=== PATIENT | female | born 1995 | race Caucasian/White ===

== ENCOUNTER 2018-05-28 08:15 | Emergency (ER) | payer BC ==
--- NOTE | 2018-05-28 08:41 | ER Report ---
History and Physical Time Seen By MD: 08:35 Hx. of Stated Complaint: i think i have a uti i have had 3 in the past HPI/ROS CHIEF COMPLAINT: dysuria HISTORY OF PRESENT ILLNESS: pt has had 2 d of dysuria, now with hematuria. Has had dysuria before but not with blood. Occurs at end of every urine stream. Sm all flecks of blood noted. No flank pain, fevers, nausea, vomiting. REVIEW OF SYSTEMS: Respiratory: No cough, no dyspnea. Cardiovascular: No chest pain, no palpitations. Gastrointestinal: No vomiting, no abdominal pain. Musculoskeletal: No back pain. Remainder of the 14 system rev: Yes Allergies: Coded Allergies: Penicillins (Verified Allergy, Unknown, RASH, 05/28/18) amoxicillin (Verified Allergy, Unknown, RASH, 05/28/18) hydrocortisone (Verified Allergy, Unknown, RASH, 05/28/18) Home Meds Active Scripts Phenazopyridine Hcl (PHENAZOPYRIDINE HCL) 100 Mg Tablet, 100 MG PO TID for 3 Days, #9 TAB Prov:ARABELLA ABREU MD 05/28/18 Nitrofurantoin Monohyd/M-Cryst (MACROBID 100 MG CAPSULE) 100 Mg Capsule, 100 MG PO BID for 7 Days, #14 CAPSULE Prov:ARABELLA ABREU MD 05/28/18 Reviewed Nurses Notes: Yes Hx Substance Use Disorder: No Hx Alcohol Use: No Constitutional Vital Sign - Last 24 Hours 05/28/18 05/28/18 08:25 08:56 Temp 97.7 Pulse 68 66 Resp 12 B/P (MAP) 125/76 109/75 (86) Pulse Ox 97 97 O2 Delivery Room Air Physical Exam General Appearance: The patient is alert, has no immediate need for airway protection and no current signs of toxicity. Eyes: Pupils equal and round no injection. Respiratory: Chest is non tender, lungs are clear to auscultation. Cardiac: regular rate and rhythm Gastrointestinal: Abdomen is soft and non tender, no masses, bowel sounds normal. Musculoskeletal: Extremities have full range of motion and are non tender. Skin: No rashes or lesions. DIFFERENTIAL DIAGNOSIS: After history and physical exam differential diagnosis was considered for uti/pyelo/appendicitis/pid/other etiology presenting as dysuria Medical Decision Making Data Points Laboratory Hematology Test 05/28/18 08:25 Urine Color Yellow Urine Clarity Cloudy Urine pH 6.0 pH (4.8-9.5) Urine Specific [place] 1.013 Urine Protein 30 mg/dL (NEGATIVE) Urine Glucose (UA) Negative mg/dL (NEGATIVE) Urine Ketones Negative mg/dL (NEGATIVE) Urine Blood Large (NEGATIVE) Urine Nitrite Negative (NEGATIVE) Urine Bilirubin Negative (NEGATIVE) Urine Urobilinogen Negative mg/dL (0.2-1.9) Urine Leukocyte Esterase Large (NEGATIVE) Urine RBC 710 /HPF (0-2/HPF) Urine WBC 260 /HPF (0-5/HPF) Urine Squamous Epithelial Cells Many /LPF (</=FEW) Urine Bacteria Few /HPF (NONE-FEW) Urine Mucus None /HPF (NONE-FEW) Urine HCG, Qualitative Negative (NEGATIVE) Chemistry Test 05/28/18 08:25 Urine Color Yellow Urine Clarity Cloudy Urine pH 6.0 pH (4.8-9.5) Urine Specific [place] 1.013 Urine Protein 30 mg/dL (NEGATIVE) Urine Glucose (UA) Negative mg/dL (NEGATIVE) Urine Ketones Negative mg/dL (NEGATIVE) Urine Blood Large (NEGATIVE) Urine Nitrite Negative (NEGATIVE) Urine Bilirubin Negative (NEGATIVE) Urine Urobilinogen Negative mg/dL (0.2-1.9) Urine Leukocyte Esterase Large (NEGATIVE) Urine RBC 710 /HPF (0-2/HPF) Urine WBC 260 /HPF (0-5/HPF) Urine Squamous Epithelial Cells Many /LPF (</=FEW) Urine Bacteria Few /HPF (NONE-FEW) Urine Mucus None /HPF (NONE-FEW) Urine HCG, Qualitative Negative (NEGATIVE) Urinalysis Test 05/28/18 08:25 Urine Color Yellow Urine Clarity Cloudy Urine pH 6.0 pH (4.8-9.5) Urine Specific [place] 1.013 Urine Protein 30 mg/dL (NEGATIVE) Urine Glucose (UA) Negative mg/dL (NEGATIVE) Urine Ketones Negative mg/dL (NEGATIVE) Urine Blood Large (NEGATIVE) Urine Nitrite Negative (NEGATIVE) Urine Bilirubin Negative (NEGATIVE) Urine Urobilinogen Negative mg/dL (0.2-1.9) Urine Leukocyte Esterase Large (NEGATIVE) Urine RBC 710 /HPF (0-2/HPF) Urine WBC 260 /HPF (0-5/HPF) Urine Squamous Epithelial Cells Many /LPF (</=FEW) Urine Bacteria Few /HPF (NONE-FEW) Urine Mucus None /HPF (NONE-FEW) Urine HCG, Qualitative Negative (NEGATIVE) ED Course/Re-evaluation ED Course Pt's ua c/w uti with hemorrhagic cystitis; no e/o pyelo D/c with macrobid due to pcn allergy, pyridium, SRp's. Decision to Disposition Date: May 28, 2018 Decision to Disposition Time: 09:10 Depart Departure Latest Vital Signs Vital Signs Date Time Temp Pulse Resp B/P (MAP) Pulse Ox O2 Delivery O2 Flow Rate FiO2 05/28/18 08:56 66 109/75 (86) 97 05/28/18 08:25 97.7 12 Room Air Impression: Primary Impression: UTI (urinary tract infection) Condition: Improved Disposition: HOME OR SELF-CARE New Scripts Phenazopyridine Hcl (PHENAZOPYRIDINE HCL) 100 Mg Tablet 100 MG PO TID for 3 Days, #9 TAB Prov: ARABELLA ABREU MD 05/28/18 Nitrofurantoin Monohyd/M-Cryst (MACROBID 100 MG CAPSULE) 100 Mg Capsule 100 MG PO BID for 7 Days, #14 CAPSULE Prov: ARABELLA ABREU MD 05/28/18 Departure Forms: ER Transition Record, Medications Reconciliation, Off Work/School Form, School or Work Release?: School Number of days to be released: 1 Patient Portal Information Additional Instructions: You have a urinary tract infection. Take the medications as prescribed. Return immediately for fevers, chills, abdominal or flank pain, adverse reaction to med ications, or any concerns. Problem Qualifiers Primary Impression: UTI (urinary tract infection) Urinary tract infection type: acute cystitis Hematuria presence: with hematuria Qualified Codes: N30.01 - Acute cystitis with hematuria ARABELLA ABREU MD May 28, 2018 08:41
[2018-05-28 08:56] VITALS: BP 109/75
[2018-05-28] MEDS ORDERED: NITR-105 PO (09:08)
[2018-05-28] MEDS ORDERED: PHEN100T27 PO (09:08)
== END 2018-05-28 09:14 | disposition home or self-care (01) ==
LOC: ER 08:27
DX: N30.01 Acute cystitis with hematuria (principal)
CPT/HCPCS: 81001; 81025; 99282